=== PATIENT | female | born 1980 | race Caucasian/White ===

== ENCOUNTER 2018-09-28 14:00 | Inpatient (IN) | payer OTHER ==
[2018-09-28] MEDS: ELECTROLYTE-148 SOLN 1,000 ML IV SCH (14:30)
--- NOTE | 2018-09-28 14:51 | HP ---
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: Alzheimer's, CVA, Dementia, Migraine, Multiple Sclerosis, Peripheral Neuropathy, Parkinson's, Seizure, Syncope, TIA, Vertigo, Other Cardiovascular: No: AFIB, Aneurysm, Aortic Insufficiency, Aortic Stenosis, CAD, CHF, Deep Vein Thrombosis, HTN, Hyperlipdemia, NM, Mitral Insufficiency, Mitral Stenosis, Murmur, Pulmonary Hypertension, Other Pulmonary: No: Asthma, Bronchitis, Cancer, COPD, O2 Dependent, Pneumonia, Previously Intubated, Pulmonary Embolus, Pulmonary Fibrosis, Sleep Apnea, Other Gastrointestinal: No: Ascites, Cancer, Constipation, Crohn's Disease, Diverticulitis, Diverticulosis, Esophageal Varices, Gastritis, GERD, GI Bleed, Hemorrhoids, Hiatal Hernia, Inflamatory Bowel Disease, Irritable Bowel Disease, Pancreatitis, Peptic Ulcer Disease, Ulcerative Colitis, Other Hepatobiliary: No: Cirrhosis, Cholelithiasis, Cholecystitis, Choledocholithiasis , Hepatitis A, Hepatitis B, Hepatitis C, Other Renal/: No: Renal Failure, Renal Inusuff, BPH, Cancer, Hematuria, Hemodialysis , Neurogenic Bladder, Renal Calculi, UTI, Other Reproductive: No: Ectopic , Endometriosis, Fibroids, PID, Polycystic Ovary Syndrome, Postmenopausal, Other ...: 2 ...Para: 1 ...Term: 2 ... Weeks Gestation by Dates: 39 ...EDC by Dates: 09/29/18 Heme/Onc: No: Anemia, B12 Deficiency, Bleeding Disorder, Cancer, Current Chemotherapy, Current Radiation Therapy, Hemochromatosis, Hypercoaguable State, Myeloproliferative Synd, Sickle Cell Disease, Sickle Cell Trait, Thrombocytopenia, Other Infectious Disease: No: AIDS, C-Diff, Herpes Zoster, HIV, MRSA, STD's, Tuberculosis, VREF, Other Psych: No: Addictions, Anxiety, Bipolar, Depression, Panic, Psychosis, Schizophrenia, Other Musculoskeletal: No: Bursitis, Chronic low back pain, Hemiparesis, Hemiplegia, Osteoarthritis, Paraplegia, Other Rheumatology: No: Fibromyalgia, Gout, Lupus, Rheumatoid Arthritis, Sarcoidosis, Vasculitis, Other ENT: No: Allergic Rhinitis, Sinusitis, Other Endocrine: No: Enrique's Disease, [place]'s Disease, Diabetes Insipidus, Diabetes Mellitus, Hyperparathyroidism, Hyperthyroidism, Hypothyroidism, Osteopenia, SIADH, Other Dermatology: No: Basal Cell, Cellulitis, Eczema, Melanoma, Psoriasis, Squamous Cell, Other - Past Surgical History Past Surgical History: No: None, AAA Repair, AICD, Amputation, Appendectomy, Arthrosocopy, AV Fistula/Graft, Bariatric Surgery, Breast Biopsy, Bypass, CABG, Carotid Endarterectomy, Cataract Removal, Cholecystectomy, Colectomy, Colonoscopy, Colostomy, Craniotomy, , Cystectomy, Hernia Repair, Hysterectomy, Ileal Conduit, Ileosotomy, Joint Replacement, Kidney Transplant, Laminectomy, Liver Transplant, Mastectomy, Nephrectomy, Oopherectomy, Orchiectomy, Permanent Pacemaker, Prostatectomy, Splenectomy, Stent, Thoracotomy , TURP, Tonsillectomy, Tubal Ligation, Upper Endoscopy, Valve Replacement, Vasectomy, Vein Stripping/Ligation Hx Myomectomy: No Hx Transabdominal Cerclage: No - Advance Directives Advance Directives: Yes: Living Will - Smoking History Smoking history: Never smoked Have you smoked in the past 12 months: No - Alcohol/Substance Use Hx Alcohol Use: No History of Substance Use: reports: None - Social History Usual Living Arrangement: No: Alone, With Spouse, With Parent, With Significant Other, With Child, Assisted Living, Detention, Other ADL: Independent History of Recent Travel: No Home Medications - Allergies Allergies/Adverse Reactions: Allergies Allergy/AdvReac Type Severity Reaction Status Date / Time No Known Allergies Allergy Verified 09/28/18 14:37 Family Disease History - Family Disease History Family History: Denies Review of Systems - Review of Systems Constitutional: reports: No Symptoms Eyes: reports: No Symptoms HENT: reports: No Symptoms Neck: reports: No Symptoms Cardiovascular: reports: No Symptoms Respiratory: reports: No Symptoms Gastrointestinal: reports: No Symptoms Genitourinary: reports: No Symptoms Breasts: reports: No Symptoms Reported Musculoskeletal: reports: No Symptoms Integumentary: reports: No Symptoms Neurological: reports: No Symptoms Endocrine: reports: No Symptoms Hematology/Lymphatic: reports: No Symptoms Psychiatric: reports: No Symptoms Physical Exam - Maternity Constitutional: Yes: Well Nourished, No Distress, Calm Eyes: Yes: WNL, Conjunctiva Clear, EOM Intact HENT: Yes: WNL, Atraumatic, Normocephalic Neck: Yes: WNL, Supple, Trachea Midline Cardiovascular: Yes: WNL, Regular Rate and Rhythm Lungs: Clear to auscultation Breast(s): Yes: WNL - Abdominal Exam/OB Fundal Height: 40 Number of Fetuses: Single Presentation: Vertex Contractions: Yes Regularity: Irregular Intensity: Mild/Mod Monitor Mode: External Heart Rate Location: [facility] Category: I Accelerations: None Decelerations: None - Vaginal Exam/OB Vaginal Bleediing: Yes, Light Speculum Exam: No Dilatation (cm): 4 Effacement (%): 40 Amniotic Membrane Status: Ruptured Assessment/Plan for laboring with augmentation
[2018-09-28] MEDS ORDERED: OXYTOCIN 30 UNITS in 0.9% NS 30 UNIT/500 ML INFUS.BAG IVPB ONE (14:59)
[2018-09-28] MEDS ORDERED: OXYTOCIN 30 UNITS in 0.9% NS 30 UNIT/500 ML INFUS.BAG IVPB SCH (15:00)
[2018-09-28 15:47] VITALS: BMI 31.7
[2018-09-28 17:29] LABS: BASO % 0.2 % (0-2.0); EOS % 1.6 % (0-4.5); HEMATOCRIT 33.1 % (32.4-45.2); HEMOGLOBIN 10.9 GM/dL (10.7-15.3); LYMPH % 13.9 % (8-40); MCH 26.8 pg (25.7-33.7); MCHC 32.9 g/dl (32.0-36.0); MEAN CELL VOLUME 81.5 fl (80-96); MEAN PLT VOLUME 9.2 fl (7.5-11.1); NEUT % 76.3 % (42.8-82.8); PLATELET COUNT 218 K/MM3 (134-434); RBC 4.06 M/mm3 (3.60-5.2); RDW 14.5 % (11.6-15.6); WHITE BLOOD COUNT 10.1 K/mm3 (4.0-10.0)
[2018-09-28] MEDS ORDERED: BUTORPHANOL TARTRATE 2 MG/ML VIAL IVPB ONE (17:30)
[2018-09-28] MEDS ORDERED: PROMETHAZINE HCL 25 MG/1 ML VIAL IVPB ONE (17:30)
[2018-09-28 17:38] LABS: INR 1.07 (0.83-1.09); PROTHROMBIN TIME (PATIENT) 12.6 SEC (9.7-13.0)
[2018-09-28] MEDS ORDERED: BUTORPHANOL TARTRATE 1 MG/ML VIAL ONE ×2 (17:41)
[2018-09-28] MEDS ORDERED: PROMETHAZINE HCL 25 MG/1 ML VIAL ONE (17:41)
[2018-09-28 17:42] LABS: BLOOD UREA NITROGEN 11.6 mg/dL (7-18); CALCIUM 8.3 mg/dL (8.5-10.1); CREATININE 0.5 mg/dL (0.55-1.3); POTASSIUM 4.1 mmol/L (3.5-5.1)
[2018-09-28] MEDS ORDERED: BUTORPHANOL TARTRATE 1 MG/ML VIAL IVPB ONE (18:00)
[2018-09-28] MEDS ORDERED: BISACODYL 10 MG SUPP.RECT RC PRN (20:10)
[2018-09-28] MEDS ORDERED: BENZOCAINE 28 GM HEMORRHOIDAL OINTMENT TP PRN (20:10)
[2018-09-28] MEDS ORDERED: BENZOCAINE 20% 57 GM BOTTLE TP PRN (20:10)
[2018-09-28] MEDS ORDERED: METHYLERGONOVINE MALEATE 0.2 MG/1 ML AMP IM PRN (20:10)
[2018-09-28] MEDS ORDERED: WITCH HAZEL 50% (TUCKS) 40 PAD/JAR PAD TP PRN (20:10)
[2018-09-28] MEDS ORDERED: oxyCODONE HCL 5 MG TABLET PO PRN (20:10)
--- NOTE | 2018-09-28 20:13 | PN ---
Progress Note (short form) - Note Progress Note: 710 pm , 10 cm, pushing soon, variable deccel, recoverable
--- NOTE | 2018-09-28 20:13 | PN ---
Progress Note (short form) - Note Progress Note: 5pm 4 cm -2, 70%, stadol given , uc q 5 min , continue pitocin
--- NOTE | 2018-09-28 20:15 | PN ---
Delivery - Delivery Type of Anesthesia: Local Episiotomy/Laceration: None, 1st degree EBL (cc): 250 Delivery, Single - Stages of Labor Date 1st Stage Initiatied: 09/28/18 Time 1st Stage Initiated: 11:00 Date 2nd Stage Initiated: 09/28/18 Time 2nd Stage Initiated: 19:10 Date of Delivery: 09/28/18 Time of Delivery: 19:28 Date Placenta Delivered: 09/28/18 Time Placenta Delivered: 19:35 Placenta: Yes: Spontaneous - Condition of Infant Lab Systems Analyst/Defense Attorney Present: No Gender: Female Position: Left, OA Total Hours ROM (Hrs/Mins): 4hr 30 min - 1 Minute Total Score: 9 5 Minutes Total Score: 9 - Feeding Plan Initial Plan: Exclusive throughout hospitalization Benefits of Exclusively reinforced: Yes
[2018-09-28] MEDS: IBUPROFEN 600 MG TABLET (FP) PO PRN (22:00)
[2018-09-28] MEDS: OXYTOCIN 20 UNITS in 0.9% NS 20 UNIT/1,000 ML INFUS.BAG IV SCH (22:00)
[2018-09-28] MEDS ORDERED: IBUPROFEN 600 MG TABLET (FP) PO ONE (22:23)
[2018-09-29 07:49] LABS: BASO % 0.2 % (0-2.0); EOS % 0.2 % (0-4.5); HEMATOCRIT 30.8 % (32.4-45.2); HEMOGLOBIN 10.2 GM/dL (10.7-15.3); LYMPH % 11.4 % (8-40); MCH 26.9 pg (25.7-33.7); MCHC 33.2 g/dl (32.0-36.0); MEAN CELL VOLUME 81.1 fl (80-96); MONO % 6.8 % (3.8-10.2); NEUT % 81.4 % (42.8-82.8); PLATELET COUNT 199 K/MM3 (134-434); RDW 14.3 % (11.6-15.6); WHITE BLOOD COUNT 12.3 K/mm3 (4.0-10.0)
[2018-09-29] MEDS: IBUPROFEN 600 MG TABLET (FP) PO PRN (08:29)
[2018-09-29] MEDS: ACETAMINOPHEN 325 MG TABLET (FP) PO PRN (08:31)
[2018-09-29] MEDS ORDERED: DIPHTH,PERTUSS(ACELL),TET 0.5 ML DISP.SYRIN IM ONE (10:00)
--- NOTE | 2018-09-29 14:18 | PN ---
Post Progress Note Post Day: 1 Type of Delivery: Vital Signs: Vital Signs Temperature 98.6 F 09/29/18 02:17 Pulse Rate 67 09/29/18 02:17 Respiratory Rate 20 09/29/18 02:17 Blood Pressure 129/51 L 09/29/18 02:17 O2 Sat by Pulse Oximetry (%) 97 09/28/18 21:00 Breast Exam: Yes: Soft Uterus: Yes: Fundus Firm, Fundus below umbilicus Incision: Yes: Dressing dry and intact Abdomen/GI: Yes: Abdomen soft, Passing flatus, Tolerating PO Lochia: Yes: Serosa Lochia, amount: Small Extremities: Yes: Calves non-tender Perineum: Yes: Laceration Activity: Ambulating - Labs Labs: CBC WBC 12.3 K/mm3 (4.0-10.0) H 09/29/18 07:15 RBC 3.80 M/mm3 (3.60-5.2) 09/29/18 07:15 Hgb 10.2 GM/dL (10.7-15.3) L 09/29/18 07:15 Hct 30.8 % (32.4-45.2) L 09/29/18 07:15 MCV 81.1 fl (80-96) 09/29/18 07:15 MCH 26.9 pg (25.7-33.7) 09/29/18 07:15 MCHC 33.2 g/dl (32.0-36.0) 09/29/18 07:15 RDW 14.3 % (11.6-15.6) 09/29/18 07:15 Plt Count 199 K/MM3 (134-434) 09/29/18 07:15 MPV 9.0 fl (7.5-11.1) 09/29/18 07:15 Absolute Neuts (auto) 10.0 K/mm3 (1.5-8.0) H 09/29/18 07:15 Neutrophils % 81.4 % (42.8-82.8) 09/29/18 07:15 Lymphocytes % 11.4 % (8-40) 09/29/18 07:15 Monocytes % 6.8 % (3.8-10.2) 09/29/18 07:15 Eosinophils % 0.2 % (0-4.5) D 09/29/18 07:15 Basophils % 0.2 % (0-2.0) 09/29/18 07:15 Nucleated RBC % 0 % (0-0) 09/29/18 07:15 Assessment/Plan dc pt home tomorrw
--- NOTE | 2018-09-29 14:22 | DS ---
Physical Exam-CIO Vital Signs: Vital Signs Temperature 98.6 F 09/29/18 02:17 Pulse Rate 67 09/29/18 02:17 Respiratory Rate 20 09/29/18 02:17 Blood Pressure 129/51 L 09/29/18 02:17 O2 Sat by Pulse Oximetry (%) 97 09/28/18 21:00 Constitutional: Yes: Well Nourished, No Distress, Calm Eyes: Yes: WNL, Conjunctiva Clear, EOM Intact HENT: Yes: WNL, Atraumatic, Normocephalic Neck: Yes: WNL, Supple, Trachea Midline Cardiovascular: Yes: WNL, Regular Rate and Rhythm Respiratory: Yes: WNL, Regular, CTA Bilaterally Gastrointestinal: Yes: WNL, Normal Bowel Sounds, Soft ...Rectal Exam: Yes: WNL Renal/: Yes: WNL Pelvis: Yes: WNL External Genitalia: Yes: Normal Internal Exam Deferred: No Vaginal Exam: Yes: Normal Cervix: Yes: Normal Uterus: Yes: Normal Adnexa: Normal: Bilateral ....Post : Yes: Uterus firm, Uterus non-tender Breast(s): Yes: WNL Musculoskeletal: Yes: WNL Extremities: Yes: WNL Edema: Yes Edema: LUE: 1+, RUE: 1+, LLE: 1+, RLE: 1+ Integumentary: Yes: WNL Wound/Incision: Yes: Clean/Dry, Well Approximated Neurological: Yes: WNL, Alert, Oriented ...Motor Strength: WNL Psychiatric: Yes: WNL, Alert, Oriented Labs: CBC, BMP 09/29/18 07:15 09/28/18 16:20 Delivery - Delivery Type of Anesthesia: Local Episiotomy/Laceration: None, 1st degree EBL (cc): 250 Delivery, Single - Stages of Labor Date 1st Stage Initiatied: 09/28/18 Time 1st Stage Initiated: 11:00 Date 2nd Stage Initiated: 09/28/18 Time 2nd Stage Initiated: 19:10 Date of Delivery: 09/28/18 Time of Delivery: 19:28 Time Placenta Delivered: 19:35 Placenta: Yes: Spontaneous - Condition of Infant Case Resource Manager/Sole Assessor Present: No Infant Gender: Female Weight: 3.515 kg Position: Left, OA Total Hours ROM (Hrs/Mins): 4hr 30 min - 1 Minute Total Score: 9 5 Minutes Total Score: 9 - [place] Feeding Plan Initial Plan: Exclusive throughout hospitalization Benefits of Exclusively reinforced: Yes Discharge Summary Reason For Visit: LABOR ADMIT Condition: Stable - Instructions Diet, Activity, Other Instructions: regualar Disposition: HOME
[2018-09-29] MEDS: ELECTROLYTE-148 SOLN 1,000 ML IV SCH (16:21)
[2018-09-29] MEDS ORDERED: SENNOSIDES/DOCUSATE COMBO (SENNA PLUS) TABLET (UD) PO PRN (22:00)
[2018-09-29] MEDS: OXYTOCIN 20 UNITS in 0.9% NS 20 UNIT/1,000 ML INFUS.BAG IV SCH (22:31)
[2018-09-30] MEDS: IBUPROFEN 600 MG TABLET (FP) PO PRN ×2 (05:55→13:41)
[2018-09-30] MEDS: ACETAMINOPHEN 325 MG TABLET (FP) PO PRN ×2 (05:55→13:42)
[2018-09-30 10:26] VITALS: BP 116/67; PULSE 79; TEMP 98.8
== END 2018-09-30 14:30 | disposition home or self-care (01) | DRG 560 ==
LOC: JERBED 14:00 → JLDR 14:39 → J3W 22:13
PROVIDERS: ADMIT Obstetrics & Gynecology; ATTEND Obstetrics & Gynecology
PROC: 10E0XZZ Delivery of Products of Conception, External Approach (ICD-10-PCS; principal; 2018-09-28)
PROC: 0W8NXZZ Division of Female Perineum, External Approach (ICD-10-PCS; 2018-09-28)
PROC: 0HQ9XZZ Repair Perineum Skin, External Approach (ICD-10-PCS; 2018-09-28)
PROC: 3E0334Z Introduction of Serum, Toxoid and Vaccine into Peripheral Vein, Percutaneous Approach (ICD-10-PCS; 2018-09-29)
DX: O70.0 First degree perineal laceration during delivery (principal); Z3A.39 39 weeks gestation of pregnancy; Z37.0 Single live birth; Z29.13 Encounter for prophylactic Rho(D) immune globulin
CPT/HCPCS: 36415; 59409; 80048; 85025; 85461; 85610; 85730; 86593; 86850; 86900; 86901; 86999; 87389; 90715